=== PATIENT | male | born 1995 | race Caucasian/White ===

== ENCOUNTER 2020-06-16 14:15 | Emergency (ER) | payer SELFPAY ==
[2020-06-16] MEDS ORDERED: Sodium Chloride 0.9% 2,000 ML ONE (14:34)
[2020-06-16] MEDS ORDERED: Ondansetron PF 4 MG/2 ML Vial ONE (14:34)
[2020-06-16 15:06] LABS: Anion Gap 37 mmol/L (10-20); BUN (Urea Nitrogen) 67 mg/dL (8.9-20.6); Calc. Creatinine Clearance 0 mL/min (70-130); Calcium 9.4 mg/dL (7.8-10.44); Carbon Dioxide 19 mmol/L (22-29); Chloride 82 mmol/L (98-107); Estimated GFR-MDRD 7; Glucose 114 mg/dL (70-105); Potassium 3.8 mmol/L (3.5-5.1); Sodium 134 mmol/L (136-145)
[2020-06-16 16:12] LABS: Bilirubin Large (Negative); Blood, Urine Large (Negative); Clarity Cloudy (Clear); Glucose, Urine (Dipstick) Negative (Negative); Ketone, Urine 15 mg/dL (Negative); Leukocyte Negative (Negative); Nitrite Negative (Negative); Protein, Urine (Dipstick) > or equal to 300 mg/dL (Neg-Trace); Urobilinogen 0.2 mg/dL (Less than 2)
[2020-06-16 16:17] LABS: Hemoglobin 18.1 g/dL (14.0-18.0); Mean Corpuscular HGB CONC 33.5 g/dL (32.0-36.0); Mean Corpuscular Hemoglobin 31.5 pg (27.0-31.0); Mean Platelet Volume 8.8 fL (7.4-10.4); Platelet Count 225 thou/uL (130-400); Red Blood Cell (RBC) Count 5.76 mill/uL (4.70-6.10); White Blood Cell (WBC) Count 21.7 thou/uL (4.8-10.8)
[2020-06-16 16:18] LABS: Specific Gravity, Urine 1.023 (1.002-1.036)
[2020-06-16 16:24] LABS: MDiff Complete? YES
[2020-06-16 16:25] LABS: Lymphocytes 5 % (21-51); Monocytes 2 % (0-10); Neutrophil 93 % (42-75); Platelet Morphology Comment Appears Adequate; RBC Morphology Normal
[2020-06-16 16:30] LABS: Bacteria/HPF 1+ HPF (None Seen); RBC/HPF 0-3 HPF (0-3); Squamous Epithelial 0-3 HPF (0-3)
== END 2020-06-16 17:35 | disposition short-term general hospital (02) ==
LOC: NAV ERS 14:15
DX: T67.5XXA Heat exhaustion, unspecified, initial encounter (principal); N17.9 Acute kidney failure, unspecified; E86.0 Dehydration; I10 Essential (primary) hypertension
CPT/HCPCS: 36415; 80048; 81003; 81015; 83605; 85025; 93005; 96361; 96374; J2405; J7050